=== PATIENT | female | born 1990 | race African-American/Black ===

== ENCOUNTER 2018-01-14 18:57 | Emergency (ER) | payer BC, OTHER ==
[~2018-01-14] VITALS: Ht 160 cm; Wt 90.7 kg
[2018-01-14 20:13] VITALS: BP 101/56
== END 2018-01-14 20:20 | disposition home or self-care (01) ==
LOC: FSED 18:57
DX: M54.6 Pain in thoracic spine (principal); V43.52XA Car driver injured in collision with other type car in traffic accident, initial encounter; Y92.488 Other paved roadways as the place of occurrence of the external cause
CPT/HCPCS: 72072; 99283

== ENCOUNTER 2018-09-28 20:05 | Emergency (ER) | payer BC ==
[~2018-09-28] VITALS: Ht 162.6 cm; Wt 90.7 kg
[2018-09-28 20:59] VITALS: BP 129/73
== END 2018-09-28 20:50 | disposition home or self-care (01) ==
LOC: FSED 20:05
DX: H57.11 Ocular pain, right eye (principal)
CPT/HCPCS: 99282

== ENCOUNTER 2018-10-13 23:57 | Emergency (ER) | payer SELFPAY ==
[~2018-10-13] VITALS: Ht 162.6 cm; Wt 95.3 kg
== END 2018-10-14 00:34 | disposition home or self-care (01) ==
LOC: LAB 23:57 → FSED 10-14 00:34
DX: L40.1 Generalized pustular psoriasis (principal)
CPT/HCPCS: 99282

== ENCOUNTER 2019-02-17 10:44 | Emergency (ER) | payer SELFPAY ==
[~2019-02-17] VITALS: Ht 162.6 cm; Wt 95.3 kg
[2019-02-17] MEDS ORDERED: BACTRIM DS TAB1 EACH PO (11:15)
[2019-02-17] MEDS ORDERED: PYRIDIUM100 MG PO (11:15)
== END 2019-02-17 11:33 | disposition home or self-care (01) ==
LOC: FSED 10:44
DX: R30.0 Dysuria (principal); R31.9 Hematuria, unspecified; M54.5 Low back pain
CPT/HCPCS: 81003; 81025; 99282